=== PATIENT | female | born 1970 | race Caucasian/White ===

== ENCOUNTER 2024-09-21 14:08 | Outpatient (CLI) | payer OTHER ==
--- NOTE | 2024-09-21 18:52 | RADIOLOGY REPORT ---
EXAM: MR MRI THORACIC SPINE HISTORY: OTH INTVRT DISC DEGEN, LUM RGN W DISCOG BCK LW EXTRM PAIN COMPARISON: None TECHNIQUE: Multiplanar, multisequence MRI was performed. FINDINGS: VERTEBRAE: Normal in alignment and height. No suspicious bone marrow signal. INTERVERTEBRAL DISCS: No significant degenerative disc disease. No prominent disc bulge noted. No si gnificant central canal or neural foramina stenosis. No definite impingement of the bilateral exitin g nerves and traversing nerve roots. SPINAL CORD: Normal morphology and signal without evidence for cord edema or myelomalacia. It termin ates at T12-L1 level. PARASPINAL SOFT TISSUES: Unremarkable. OTHER: None. IMPRESSION: No acute osseous abnormality, significant degenerative disc disease, central canal stenosis, neural f oramina stenosis or nerve impingement.
== END 2024-09-21 23:59 | disposition home or self-care (01) ==
LOC: MRI02 14:08
PROVIDERS: ATTEND Nurse Practitioner
DX: M51.362 Other intervertebral disc degeneration, lumbar region with discogenic back pain and lower extremity pain (principal); M54.59 Other low back pain; M79.10 Myalgia, unspecified site
CPT/HCPCS: 72146

== ENCOUNTER 2024-10-05 13:27 | Outpatient (CLI) | payer OTHER ==
--- NOTE | 2024-10-06 05:25 | RADIOLOGY REPORT ---
Procedure: CT CT CHEST Reason for study/Clinical History: RIB PAIN ON R SIDE Comparison Study: None Exam Date: 10/05/2024 01:52 PM TECHNIQUE: Multidetector CT of the chest was performed from the lung apices to the upper abdomen with out the use of intravenous contract. Axial, coronal and sagittal multiplanar reformats were performed . Radiation Dose Information: CT Dose: CTDI volume is 18.2 mGy. Dose-length product is 718.5 mGy*cm The dose indicators for CT are the volume Computed Tomography (CT) Dose Index (CTDIvol) and the Dose Length Product (DLP), and are measured in units of mGy and mGy-cm, respectively. These indicators are not patient dose, but values generated from the CT scanner acquisition factors. The report includes radiation exposure data for exposures received during this examination. Radiation optimization: All C T scans at this facility use at least one of these dose optimization techniques: automated exposure c ontrol mA and/or kV adjustment per patient size (includes targeted exams where dose is matched to cl inical indication) or iterative reconstruction. FINDINGS: The airway is patent. No mediastinal or hilar adenopathy. No pericardial or pleural effusion. Minima l coronary artery calcification. The lungs appear clear without focal consolidation or suspicious nodule. Visualized portions of the upper abdomen demonstrate near complete replacement of the pancreas by fat . There has been prior cholecystectomy. No suspicious osseous lesion with specific attention to the r ight ribs. No evidence of rib fracture. IMPRESSION: 1. No acute intrathoracic abnormality. Normal CT appearance of the right ribs.
== END 2024-10-05 23:59 | disposition home or self-care (01) ==
LOC: RAD 13:27
PROVIDERS: ATTEND Nurse Practitioner
DX: M51.362 Other intervertebral disc degeneration, lumbar region with discogenic back pain and lower extremity pain (principal); R07.81 Pleurodynia; M54.59 Other low back pain; M62.838 Other muscle spasm
CPT/HCPCS: 71250